=== PATIENT | male | born 1960 | race Caucasian/White ===

== ENCOUNTER 2020-09-14 15:19 | Emergency (ER) | payer MEDICAID, SELFPAY ==
[~2020-09-14] VITALS: Ht 167.6 cm; Wt 88.5 kg
[2020-09-14 15:23] VITALS: Ht 167.6 cm; Wt 88.5 kg
[2020-09-14 16:33] VITALS: BP 97/62
== END 2020-09-14 16:33 | disposition home or self-care (01) ==
LOC: ED 15:19
DX: U07.1 COVID-19 (principal); E11.9 Type 2 diabetes mellitus without complications
CPT/HCPCS: U0003